=== PATIENT | male | born 1960 | race Caucasian/White ===

== ENCOUNTER → 2018-06-26 | Emergency (ER) | payer MEDICARE, MEDICAID, OTHER ==
[~2018-06-26] VITALS: Ht 185.4 cm; Wt 88.6 kg
[~2018-06-26] MED LIST: ARIP10TA15 PO; BUSP10TA11 PO; CLIN300C85 PO; CLON-527 PO; FENT1PAT13 TD; HYDR2TAB28 PO
[2018-06-26 10:45] VITALS: BP 12/49
== END | disposition home or self-care (01) ==
LOC: ER 09:07
DX: S20.212A Contusion of left front wall of thorax, initial encounter (principal); L29.8 Other pruritus; F41.9 Anxiety disorder, unspecified; F32.9 Major depressive disorder, single episode, unspecified; F12.10 Cannabis abuse, uncomplicated; Z88.0 Allergy status to penicillin; Z90.49 Acquired absence of other specified parts of digestive tract; Z86.14 Personal history of Methicillin resistant Staphylococcus aureus infection; W20.8XXA Other cause of strike by thrown, projected or falling object, initial encounter; Y93.89 Activity, other specified; Y92.038 Other place in apartment as the place of occurrence of the external cause; Y99.8 Other external cause status
CPT/HCPCS: 71045; 99284